=== PATIENT | male | born 1995 | race Caucasian/White ===

== ENCOUNTER → 2017-07-28 | Emergency (ER) | payer OTHER, MEDICAID ==
[~2017-07-28] VITALS: Ht 172.7 cm; Wt 68.0 kg
--- NOTE | 2017-07-28 20:11 | NUR ---
Pt triaged at this time. Resp even and unlabored, no resp distress noted. Pt to wait in for bed assignment
--- NOTE | 2017-07-29 02:10 | NUR ---
Pt called no answer
--- NOTE | 2017-07-29 02:15 | NUR ---
Pt called, no answer.
== END | disposition home or self-care (01) ==
LOC: ER 17:37
DX: Z53.21 Procedure and treatment not carried out due to patient leaving prior to being seen by health care provider (principal)
CPT/HCPCS: A4663